=== PATIENT | male | born 1985 | race Caucasian/White ===

== ENCOUNTER 2017-06-04 00:07 | Emergency (ER) | payer OTHER ==
[~2017-06-04] VITALS: Ht 180.3 cm; Wt 77.6 kg
[2017-06-04 02:14] LABS: EOSINOPHIL (%) 1.2 % (0-5); EOSINOPHIL COUNT 0.1 K/uL (0-0.3); HEMATOCRIT 43.4 % (38.0-50.0); IMMATURE GRANULOCYTE (%) 0.7 % (0.0-0.7); INSTRUMENT ABS NEUTROPHIL CT 4.2 K/uL; MCHC 33.4 G/DL (30.0-36.0); MCV 86.8 FL (86-99); MEAN PLAT.VOLUME 9.4 uM^3 (9.0-12.4); MONOCYTE (%) 9.5 % (3-12); MONOCYTE COUNT 0.6 K/uL (0-0.8); NEUTROPHIL (%) 71.4 % (45-76); NEUTROPHIL COUNT 4.2 K/uL (1.8-6.4); PLATELET COUNT 251 K/uL (156-360); RBC DIS.WIDTH-CV 12.9 % (11.8-14.6); RBC DIS.WIDTH-SD 40.5 % (39-53); WHITE BLOOD COUNT 5.8 K/uL (4.1-10.2)
[2017-06-04 02:25] LABS: CHLORIDE 107 mEq/L (99-109); POTASSIUM 3.7 mEq/L (3.7-5.4); SODIUM 139 mEq/L (136-147)
[2017-06-04 02:27] LABS: GLUCOSE 121 mg/dL (70-99)
[2017-06-04 02:29] LABS: ANION GAP 9 MEQ/L (2-14)
[2017-06-04 02:31] LABS: GFR ESTIMATE (CALCULATED) > 59 mL/min/
[2017-06-04 02:32] LABS: UREA NITROGEN (BUN) 22 mg/dL (9-23)
[2017-06-04 02:35] LABS: TROP-I INTERPRETATION NEGATIVE; TROPONIN-I < 0.01 ng/mL (0.0-0.30)
[2017-06-04 04:46] LABS: TROP-I INTERPRETATION NEGATIVE; TROPONIN-I < 0.01 ng/mL (0.0-0.30)
[2017-06-04] MEDS ORDERED: CARAFATE1 GM PO (05:14)
[2017-06-04 05:26] VITALS: BP 107/80
== END 2017-06-04 05:32 | disposition home or self-care (01) ==
LOC: EME 00:07
PROVIDERS: Emergency Medicine
DX: R07.9 Chest pain, unspecified (principal)
CPT/HCPCS: 71020; 80048; 84484; 85025; 93005; 99281; 99285